=== PATIENT | male | born 1935 | race Caucasian/White ===

== ENCOUNTER 2019-04-30 15:35 | Day surgery (SDC) | payer MEDICARE, BC ==
[~2019-04-30 15:35] MED LIST: ALLO100T PO; AMIO200T40 PO; ASPI-1265 PO; ATOR40TA72 PO; CALC-891 PO; CARV3.1244 PO; DABI150C PO; DOCU100C41 PO; FOLI1TAB16 PO; HYDR-4353 PO; LUTE40CA PO; METH2.5T PO; MULT-933 PO; NITR0.4T51 SL
== END 2019-04-30 16:20 | disposition home or self-care (01) ==
LOC: SSTAY O 15:35
PROVIDERS: ATTEND Radiology Vascular & Interventional Radiology
DX: J90 Pleural effusion, not elsewhere classified (principal); Z53.8 Procedure and treatment not carried out for other reasons; Z95.1 Presence of aortocoronary bypass graft
CPT/HCPCS: 71046

== ENCOUNTER 2019-05-02 06:10 | Day surgery (SDC) | payer MEDICARE, BC ==
[~2019-05-02] VITALS: Ht 180.3 cm; Wt 83.4 kg
[~2019-05-02 06:10] MED LIST changes: -NITR0.4T51 SL
[2019-05-02 07:04] VITALS: BP 105/71
[2019-05-02 07:14] VITALS: BP 105/71
[2019-05-02 08:38] VITALS: BP 105/71
[2019-05-02 08:52] VITALS: BP 117/69
[2019-05-02 09:09] VITALS: BP 106/65
[2019-05-02 10:17] VITALS: BP 116/72
== END 2019-05-02 09:35 | disposition home or self-care (01) ==
LOC: SSTAY O 06:10
PROVIDERS: ATTEND Radiology Diagnostic Radiology
DX: J90 Pleural effusion, not elsewhere classified (principal); I25.10 Atherosclerotic heart disease of native coronary artery without angina pectoris; Z87.891 Personal history of nicotine dependence; Z95.5 Presence of coronary angioplasty implant and graft; Z79.899 Other long term (current) drug therapy; Z79.82 Long term (current) use of aspirin; Z98.890 Other specified postprocedural states; Z95.1 Presence of aortocoronary bypass graft
CPT/HCPCS: 32555; 71045; 87070; C1729

== ENCOUNTER 2019-10-09 10:25 | Outpatient (CLI) | payer MEDICARE, BC ==
[~2019-10-09 10:25] MED LIST changes: -AMIO200T40 PO; +AMIO200T61 PO
== END 2019-10-09 23:59 | disposition home or self-care (01) ==
LOC: 64 CT 10:25
PROVIDERS: ATTEND Thoracic Surgery (Cardiothoracic Vascular Surgery)
DX: J43.9 Emphysema, unspecified (principal); J90 Pleural effusion, not elsewhere classified; J98.4 Other disorders of lung; J98.11 Atelectasis; I51.7 Cardiomegaly; I25.10 Atherosclerotic heart disease of native coronary artery without angina pectoris; M40.294 Other kyphosis, thoracic region; Z95.0 Presence of cardiac pacemaker
CPT/HCPCS: 71250

== ENCOUNTER 2019-10-29 13:27 | Emergency (ER) | payer MEDICARE, BC ==
[~2019-10-29] VITALS: Ht 180.3 cm; Wt 76.5 kg
[2019-10-29] MEDS ORDERED: furosemide 10 MG/1 ML 10ml inj IV ONE (15:50)
--- NOTE | 2019-10-29 16:02 | NUR ---
laureen from [facility] returned mary call re; probable thoracentesis post valve repair. laureen stated we dont do unless pt admitted.
--- NOTE | 2019-10-29 16:05 | NUR ---
jose talking with now
[2019-10-29 16:25] LABS: BASOPHILS % (AUTO) 0.5 % (0-1); EOSINOPHILS # (AUTO) 0.2 X10'3 (0-0.9); HEMATOCRIT 39.7 % (42.0-52.0); HEMOGLOBIN 13.2 g/dl (14.0-17.9); LYMPHOCYTES % (AUTO) 11.9 % (21-51); MEAN CORPUSCULAR HEMOGLOBIN 31.2 PG (27.0-31.0); MEAN CORPUSCULAR HGB CONC 33.3 g/dL (33.0-36.5); MEAN CORPUSCULAR VOLUME 93.7 FL (78-98); MEAN PLATELET VOLUME 7.6 FL (7.4-10.4); MONOCYTES # (AUTO) 0.4 X10'3 (0-0.9); MONOCYTES % (AUTO) 5.3 % (2-12); NEUTROPHILS # (AUTO) 6.5 X10'3 (1.8-7.7); NEUTROPHILS % (AUTO) 80.3 % (42-75); PLATELET COUNT 278 X10'3 (140-440); RED BLOOD COUNT 4.24 X10'6 (4.70-6.10); RED CELL DISTRIBUTION WIDTH 16.8 % (11.5-14.5)
--- NOTE | 2019-10-29 16:25 | NUR ---
SPOKE WITH SELAM CANA[place] IR, ANGIO/IR WILL BE HERE SHORTLY DO DO THE THORACENTESIS NAHOMY LILLY IN ROOM SPEAKING WITH PATIENT AND FAMILY REGARDING PLUERADESIS. AT THIS TIME PATIENT IS REFUSING TO BE ADMITTED TO THE HOSPITAL
[2019-10-29 16:39] LABS: ALANINE AMINOTRANSFERASE 26 U/L (12-78); ALBUMIN 3.7 G/DL (3.4-5.0); ALBUMIN/GLOBULIN RATIO 0.6 (1.1-1.5); ALKALINE PHOSPHATASE 138 IU/L (46-116); ANION GAP 7 (8-16); ASPARTATE AMINO TRANSFERASE 27 U/L (10-37); BILIRUBIN,TOTAL 0.6 MG/DL (0.1-1.0); BLOOD UREA NITROGEN 23 MG/DL (7-18); BUN/CREATININE RATIO 20.2 (5.4-32.0); CALCIUM 9.9 MG/DL (8.5-10.1); CHLORIDE 103 MMOL/L (99-107); CREATININE 1.14 MG/DL (0.60-1.10); GLUCOSE 107 MG/DL (70-104); POTASSIUM 4.2 MMOL/L (3.5-5.1); SODIUM 141 MMOL/L (135-145); TOTAL CARBON DIOXIDE 31.1 MMOL/L (24-32); TOTAL PROTEIN 9.4 G/DL (6.4-8.2); eGFR 61 ML/MIN
--- NOTE | 2019-10-29 16:39 | NUR ---
ANGIO RN AND TECH IN ROOM
--- NOTE | 2019-10-29 16:39 | NUR ---
LAST PRADAXA PRIOR TO [place]
--- NOTE | 2019-10-29 16:40 | NUR ---
LASIX HELD FOR THORACENTESIS
[2019-10-29 16:42] VITALS: BP 111/80
[2019-10-29 16:45] VITALS: BP 107/76
[2019-10-29] MEDS ORDERED: morphine 4 MG/ML inj SYRINge IV ONE (17:05)
[2019-10-29] MEDS ORDERED: ondansetron/PF 4mg/2ml inj IV ONE (17:05)
--- NOTE | 2019-10-29 17:21 | NUR ---
ANGIO FINISHED WITH PROCEDURE. 850ML OUT. PT FEELS LESS SHORT OF BREATH.
[2019-10-29 18:07] VITALS: BP 116/79
== END 2019-10-29 18:08 | disposition home or self-care (01) ==
LOC: ER 13:27
DX: J90 Pleural effusion, not elsewhere classified (principal); E78.00 Pure hypercholesterolemia, unspecified; K21.9 Gastro-esophageal reflux disease without esophagitis; I25.2 Old myocardial infarction; M10.9 Gout, unspecified; F10.99 Alcohol use, unspecified with unspecified alcohol-induced disorder; Z98.890 Other specified postprocedural states; Z79.82 Long term (current) use of aspirin; Z79.899 Other long term (current) drug therapy; Y90.9 Presence of alcohol in blood, level not specified
CPT/HCPCS: 32555; 36415; 71045; 80053; 83880; 85025; 85610; 93005; 96374; 99285; J1940

== ENCOUNTER 2020-01-03 10:54 | Outpatient (CLI) | payer MEDICARE, BC ==
[~2020-01-03 10:54] MED LIST changes: -CARV3.1244 PO; -DABI150C PO; -DOCU100C41 PO; -HYDR-4353 PO; +LISI2.5T2 PO; +SPIR25TA PO
== END 2020-01-03 23:59 | disposition home or self-care (01) ==
LOC: RAD 10:54
PROVIDERS: ATTEND Thoracic Surgery (Cardiothoracic Vascular Surgery)
DX: J91.8 Pleural effusion in other conditions classified elsewhere (principal)
CPT/HCPCS: 71046

== ENCOUNTER 2020-02-05 11:20 | Emergency (ER) | payer MEDICARE, BC ==
[~2020-02-05] VITALS: Ht 180.3 cm; Wt 84.5 kg
[~2020-02-05 11:20] MED LIST changes: -ALLO100T PO; +ALLO300T2 PO; -AMIO200T61 PO; +APIX5TAB3 PO; +FURO-150 PO; +LEVO88TA7 PO; -METH2.5T PO
[2020-02-05] MEDS ORDERED: furosemide 40mg/4ml inj IV ONE (11:55)
[2020-02-05 11:56] LABS: BASOPHILS # (AUTO) 0.1 X10'3 (0-0.2); BASOPHILS % (AUTO) 1.4 % (0-1); EOSINOPHILS # (AUTO) 0.1 X10'3 (0-0.9); EOSINOPHILS % (AUTO) 1.2 % (0-6); HEMATOCRIT 40.3 % (42.0-52.0); HEMOGLOBIN 13.2 g/dl (14.0-17.9); LYMPHOCYTES # (AUTO) 0.7 X10'3 (1.1-4.8); LYMPHOCYTES % (AUTO) 9.2 % (21-51); MEAN CORPUSCULAR HEMOGLOBIN 32.2 PG (27.0-31.0); MEAN CORPUSCULAR HGB CONC 32.8 g/dL (33.0-36.5); MEAN CORPUSCULAR VOLUME 98.4 FL (78-98); MONOCYTES # (AUTO) 0.4 X10'3 (0-0.9); MONOCYTES % (AUTO) 6.2 % (2-12); NEUTROPHILS # (AUTO) 5.9 X10'3 (1.8-7.7); PLATELET COUNT 179 X10'3 (140-440); RED BLOOD COUNT 4.09 X10'6 (4.70-6.10); RED CELL DISTRIBUTION WIDTH 21.8 % (11.5-14.5); WHITE BLOOD COUNT 7.3 X10'3 (4.5-11.0)
[2020-02-05] MEDS ORDERED: FURO20TA4 PO (12:02)
[2020-02-05 12:03] LABS: ALANINE AMINOTRANSFERASE 57 U/L (12-78); ALBUMIN 3.1 G/DL (3.4-5.0); ALBUMIN/GLOBULIN RATIO 0.6 (1.1-1.5); ALKALINE PHOSPHATASE 205 IU/L (46-116); ANION GAP 8 (8-16); ASPARTATE AMINO TRANSFERASE 54 U/L (10-37); BLOOD UREA NITROGEN 30 MG/DL (7-18); BUN/CREATININE RATIO 21.6 (5.4-32.0); CALCIUM 9.2 MG/DL (8.5-10.1); CHLORIDE 103 MMOL/L (99-107); CREATININE 1.39 MG/DL (0.60-1.10); GLUCOSE 103 MG/DL (70-104); POTASSIUM 4.5 MMOL/L (3.5-5.1); SODIUM 138 MMOL/L (135-145); TOTAL CARBON DIOXIDE 27.4 MMOL/L (24-32); TOTAL PROTEIN 7.9 G/DL (6.4-8.2); eGFR 49 ML/MIN
[2020-02-05] MEDS ORDERED: SPIR25TA5 PO (12:03)
[2020-02-05] MEDS ORDERED: LISI2.5T89 PO (12:06)
[2020-02-05] MEDS ORDERED: APIX5TAB3 PO (12:06)
[2020-02-05] MEDS ORDERED: AMIO200T61 PO (12:06)
[2020-02-05 12:24] LABS: ANISOCYTOSIS 3+; PLATELET ESTIMATE NORMAL
[2020-02-05 12:26] LABS: POIKILOCYTOSIS 1+
[2020-02-05 12:27] LABS: ELLIPTOCYTES 1+
[2020-02-05 12:31] LABS: ACANTHOCYTES FEW
[2020-02-05 13:34] VITALS: BP 110/66
--- NOTE | 2020-02-05 13:34 | NUR ---
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
== END 2020-02-05 14:17 | disposition home or self-care (01) ==
LOC: ER 11:21
DX: I50.20 Unspecified systolic (congestive) heart failure (principal); E78.00 Pure hypercholesterolemia, unspecified; I25.2 Old myocardial infarction; K21.9 Gastro-esophageal reflux disease without esophagitis; M19.90 Unspecified osteoarthritis, unspecified site; Z86.711 Personal history of pulmonary embolism; Z86.718 Personal history of other venous thrombosis and embolism; Z95.1 Presence of aortocoronary bypass graft; Z98.890 Other specified postprocedural states; Z79.82 Long term (current) use of aspirin; Z79.01 Long term (current) use of anticoagulants; Z79.899 Other long term (current) drug therapy
CPT/HCPCS: 36415; 71045; 80053; 83880; 84484; 85025; 93005; 96374; 99285; J1940

== ENCOUNTER 2020-10-18 12:59 | Emergency (ER) | payer MEDICARE, BC ==
[~2020-10-18] VITALS: Ht 180.3 cm; Wt 90.0 kg
[~2020-10-18 12:59] MED LIST changes: +AMIO200T61 PO; +CARV3.122 PO; +FURO-149 PO; -FURO-150 PO; -LEVO88TA7 PO; -LISI2.5T2 PO; +LISI2.5T89 PO; -SPIR25TA PO; +SPIR25TA5 PO
[2020-10-18] MEDS ORDERED: aspirin 81mg tab.chew PO ONE (14:55)
[2020-10-18 15:52] LABS: BASOPHILS % (AUTO) 0.3 % (0-1); EOSINOPHILS % (AUTO) 0.5 % (0-6); HEMATOCRIT 32.8 % (42.0-52.0); HEMOGLOBIN 11.1 g/dl (14.0-17.9); LYMPHOCYTES # (AUTO) 0.5 X10'3 (1.1-4.8); LYMPHOCYTES % (AUTO) 5.7 % (21-51); MEAN CORPUSCULAR HEMOGLOBIN 32.2 PG (27.0-31.0); MEAN CORPUSCULAR HGB CONC 33.7 g/dL (33.0-36.5); MEAN CORPUSCULAR VOLUME 95.7 FL (78-98); MEAN PLATELET VOLUME 7.7 FL (7.4-10.4); MONOCYTES # (AUTO) 0.6 X10'3 (0-0.9); MONOCYTES % (AUTO) 7.2 % (2-12); NEUTROPHILS # (AUTO) 7.6 X10'3 (1.8-7.7); NEUTROPHILS % (AUTO) 86.3 % (42-75); PLATELET COUNT 239 X10'3 (140-440); RED BLOOD COUNT 3.43 X10'6 (4.70-6.10); RED CELL DISTRIBUTION WIDTH 17.5 % (11.5-14.5); WHITE BLOOD COUNT 8.7 X10'3 (4.5-11.0)
[2020-10-18 16:10] LABS: ALANINE AMINOTRANSFERASE 39 U/L (12-78); ALBUMIN/GLOBULIN RATIO 0.3 (1.1-1.5); ALKALINE PHOSPHATASE 217 IU/L (46-116); ANION GAP 5 (8-16); ASPARTATE AMINO TRANSFERASE 54 U/L (10-37); BILIRUBIN,TOTAL 1.1 MG/DL (0.1-1.0); BLOOD UREA NITROGEN 17 MG/DL (7-18); BUN/CREATININE RATIO 13.4 (5.4-32.0); CALCIUM 8.4 MG/DL (8.5-10.1); CHLORIDE 104 MMOL/L (99-107); CREATININE 1.27 MG/DL (0.60-1.10); GLUCOSE 90 MG/DL (70-104); POTASSIUM 3.1 MMOL/L (3.5-5.1); SODIUM 140 MMOL/L (135-145); TOTAL CARBON DIOXIDE 30.9 MMOL/L (24-32); TOTAL PROTEIN 8.3 G/DL (6.4-8.2); eGFR 54 ML/MIN
[2020-10-18] MEDS ORDERED: furosemide 10 MG/1 ML 10ml inj IV ONE (17:15)
[2020-10-18] MEDS ORDERED: potassium Cl 20 mEq SR tablet PO ONE (17:35)
[2020-10-18 17:51] VITALS: BP 107/61
== END 2020-10-18 18:16 | disposition home or self-care (01) ==
LOC: ER 13:00
DX: R60.0 Localized edema (principal); J90 Pleural effusion, not elsewhere classified; I50.9 Heart failure, unspecified; E78.00 Pure hypercholesterolemia, unspecified; K21.9 Gastro-esophageal reflux disease without esophagitis; I21.9 Acute myocardial infarction, unspecified; Z79.899 Other long term (current) drug therapy
CPT/HCPCS: 36415; 71045; 80053; 83880; 84484; 85025; 93005; 96374; 99285; J1940

== ENCOUNTER 2020-10-24 13:21 | Inpatient (IN) | payer MEDICARE, BC ==
[~2020-10-24] VITALS: Ht 170.2 cm; Wt 76.0 kg
[2020-10-24 13:37] LABS: ABG BASE EXCESS 3.7 mmol/L (-2.0-2.0); ABG HCO3 26.3 mmol/L (22.0-26.0); ABG OXYGEN SATURATION 99.5 % (94-97); ABG PCO2 (T) 33.2 mmHg (35.0-48.0); ALLEN'S TEST POSITIVE; FLOW 15 L/min; FMetHb 0.1 % (0.0-1.5); FO2Hb 98.4 % (94-97); TOTAL HEMOGLOBIN 12.8 G/dl (14.0-18.0)
[2020-10-24] MEDS ORDERED: normal saline 1000ML IV soln IVB ONE (13:40)
[2020-10-24] MEDS ORDERED: sodium bicarbonate (8.4%) 1 mEq/ml syringe IV ONE (13:55)
[2020-10-24] MEDS ORDERED: calcium chloride 100 MG/1 ML inj IV ONE (13:55)
[2020-10-24] MEDS ORDERED: amiodarone/D5 360MG/200ML BAG 200 ML IV ONE (13:55)
[2020-10-24] MEDS ORDERED: amiodarone 50MG/ML inj IV ONE (13:55)
[2020-10-24] MEDS ORDERED: dextrose 50%-water 50ml dispensing syringe IV ONE (13:55)
[2020-10-24 13:57] LABS: BASOPHILS % (AUTO) 0.1 % (0-1); EOSINOPHILS % (AUTO) 0.3 % (0-6); HEMATOCRIT 38.4 % (42.0-52.0); LYMPHOCYTES % (AUTO) 7.8 % (21-51); MEAN CORPUSCULAR HEMOGLOBIN 32.2 PG (27.0-31.0); MEAN CORPUSCULAR HGB CONC 33.8 g/dL (33.0-36.5); MEAN CORPUSCULAR VOLUME 95.5 FL (78-98); MEAN PLATELET VOLUME 7.5 FL (7.4-10.4); MONOCYTES # (AUTO) 0.7 X10'3 (0-0.9); MONOCYTES % (AUTO) 5.2 % (2-12); NEUTROPHILS # (AUTO) 10.8 X10'3 (1.8-7.7); NEUTROPHILS % (AUTO) 86.6 % (42-75); PLATELET COUNT 338 X10'3 (140-440); RED BLOOD COUNT 4.02 X10'6 (4.70-6.10); RED CELL DISTRIBUTION WIDTH 17.6 % (11.5-14.5); WHITE BLOOD COUNT 12.4 X10'3 (4.5-11.0)
[2020-10-24 14:04] LABS: PARTIAL THROMBOPLASTIN TIME 28 SECONDS (22-32)
[2020-10-24 14:13] LABS: ALANINE AMINOTRANSFERASE 48 U/L (12-78); ALBUMIN 2.2 G/DL (3.4-5.0); ALBUMIN/GLOBULIN RATIO 0.3 (1.1-1.5); ALKALINE PHOSPHATASE 251 IU/L (46-116); ANION GAP 8 (8-16); ASPARTATE AMINO TRANSFERASE 62 U/L (10-37); BILIRUBIN,TOTAL 1.6 MG/DL (0.1-1.0); BLOOD UREA NITROGEN 18 MG/DL (7-18); BUN/CREATININE RATIO 14.8 (5.4-32.0); CALCIUM 9.1 MG/DL (8.5-10.1); CHLORIDE 102 MMOL/L (99-107); CREATININE 1.22 MG/DL (0.60-1.10); GLUCOSE 119 MG/DL (70-104); MAGNESIUM 2.2 MG/DL (1.5-2.4); SODIUM 141 MMOL/L (135-145); TOTAL PROTEIN 9.4 G/DL (6.4-8.2); eGFR 56 ML/MIN
[2020-10-24 14:21] LABS: POTASSIUM 2.8 MMOL/L (3.5-5.1)
[2020-10-24] MEDS ORDERED: LIDOcaine 2% 10ml TOPICAL JELLY (Urojet) TP ONE (14:30)
[2020-10-24] MEDS: magnesium 2GM in 50ml NS 50 ML IV SCH ×2 (14:55→16:17)
--- NOTE | 2020-10-24 15:28 | NUR ---
CT SCAN COMPLETED.
[2020-10-24] MEDS: potassium Cl 10 mEq/100mL bag IV SCH ×2 (15:30→16:06)
--- NOTE | 2020-10-24 15:36 | NUR ---
COLLECTED COVID NASAL SWAB. SEND TO LAB.
[2020-10-24 15:40] LABS: C-REACTIVE PROTEIN 10.75 MG/DL (0.0-0.5); FERRITIN 724 NG/ML (26-388); LACTATE DEHYDROGENASE 218 U/L (85-227)
[2020-10-24] MEDS ORDERED: magnesium 4gm in 100ml NS 100 ML IV PRN (15:50)
[2020-10-24] MEDS ORDERED: acetaminophen 325mg tablet PO PRN ×2 (15:50)
[2020-10-24] MEDS ORDERED: magnesium Cl slow-release 64mg tablet PO PRN (15:50)
[2020-10-24] MEDS ORDERED: ondansetron/PF 4mg/2ml inj IV PRN (15:50)
[2020-10-24] MEDS ORDERED: morphine 2 MG/ML inj. syringe IV PRN ×2 (15:50)
[2020-10-24] MEDS ORDERED: HYDROcodone/acetaminophen 10/325mg tab PO PRN (15:50)
[2020-10-24] MEDS ORDERED: HYDROcodone/acetaminophen 5mg/325mg tablet PO PRN (15:50)
[2020-10-24] MEDS ORDERED: potassium Cl 20 mEq SR tablet PO PRN (15:50)
[2020-10-24] MEDS ORDERED: acetaminophen 650mg rectal suppository RC PRN (15:50)
[2020-10-24] MEDS ORDERED: potassium Cl 40MEQ/1/2NS 520ml 520 ML IV PRN ×2 (15:50)
[2020-10-24] MEDS ORDERED: magnesium 2GM in 50ml NS 50 ML IV PRN (15:50)
[2020-10-24] MEDS ORDERED: magnesium hydroxide 30ml (MOM) UD suspension PO PRN (15:50)
[2020-10-24] MEDS ORDERED: bisacodyl 10mg suppository rectal RC PRN (15:50)
[2020-10-24] MEDS ORDERED: mag hydrox/Alum hydrox/simeth 30ml oral suspension PO PRN (15:50)
[2020-10-24] MEDS: furosemide 10 MG/1 ML 10ml inj IV ONE ×2 (15:50→18:01)
[2020-10-24] MEDS ORDERED: diphenhydrAMINE 25mg capsule PO PRN (15:50)
[2020-10-24 16:22] LABS: HEMOGLOBIN A1C 6.4 % (4.5-6.2)
--- NOTE | 2020-10-24 16:41 | NUR ---
DR RYAN ADVISES TO CANCEL THE PREVIOUSLY ORDERED AMIODARONE, SODIUM BICARB, CALCIUM.
--- NOTE | 2020-10-24 18:11 | NUR ---
Patient in room ED 5. I have received report from Lois CANADA and had the opportunity to ask questions and assume patient care.
--- NOTE | 2020-10-24 18:19 | NUR ---
Peralta catheter inserted gauge 16
[2020-10-24] MEDS ORDERED: CARV6.253 PO (18:55)
[2020-10-24 19:00] VITALS: BP 95/62
--- NOTE | 2020-10-24 19:43 | NUR ---
Patient in room ED 5. I have received report from Champ CANADA in ER and had the opportunity to ask questions and assume patient care.
[2020-10-24 19:50] LABS: CLARITY,URINE CLEAR (Clear); COLOR,URINE YELLOW (Yellow); GLUCOSE, URINE NEGATIVE (Neg); KETONES,URINE NEGATIVE (Neg); LEUKOCYTE ESTERASE ,URINE NEGATIVE (Neg); NITRITES, URINE NEGATIVE (Neg); OCCULT BLOOD,URINE NEGATIVE (Neg); PROTEIN,URINE 30 mg/dl (Neg)
[2020-10-24 19:57] LABS: UA COLLECTION TYPE FOLEY CATH
[2020-10-24 19:58] LABS: BACTERIA,URINE FEW /HPF (Neg); RBC,URINE NONE SEEN /HPF (0-2); SQUAMOUS EPITHELIAL CELL,UR FEW /LPF (FEW); WBC,URINE 0-4 /HPF (0-4)
[2020-10-24] MEDS: K and/or MAG REPLACEMENT MC SCH (20:00)
[2020-10-24] MEDS: carvedilol 6.25mg tablet PO SCH (20:00)
[2020-10-24] MEDS: furosemide 10 MG/1 ML 10ml inj IV SCH (20:00)
[2020-10-24] MEDS ORDERED: apixaban 5mg tablet PO SCH (20:00)
--- NOTE | 2020-10-24 20:51 | NUR ---
patient uncable to swallow, sent message to MD regarding medication non administration upon admission to floor. Ricardo CANADA
--- NOTE | 2020-10-24 20:55 | NUR ---
PAGER ID: [phone] MESSAGE: AZIZA ROMERO-BRYAN ADMIT PCU-LE TO SWALLOW, SBP <100; HELD ABIXIPAN AND COREG. PT DNR-REPLACE PO WITH IV MEDS? SAVANA 1440
--- NOTE | 2020-10-24 20:58 | NUR ---
MD AGGARWAL RESPONDED BACK, NO NEW ORDERS, WILL CONTINUE TO MONITOR, INFORM DAY SHIFT RN/MD COLON RN
--- NOTE | 2020-10-24 21:34 | NUR ---
PAGER ID: [phone] MESSAGE: [phone] Jaren Tang-please call Ana Rosa [phone]- question regarding k level/furosemide order
[2020-10-24 22:00] VITALS: BP 100/59
[2020-10-25] MEDS ORDERED: heparin 10,000 units/1 ML INJ IV PRN (01:55)
[2020-10-25] MEDS ORDERED: heparin 25,000 UNIT/250ml bag 250 ML IV SCH (01:55)
[2020-10-25] MEDS ORDERED: heparin 10,000 units/1 ML INJ IV ONE (01:55)
[2020-10-25 02:00] VITALS: BP 99/65
[2020-10-25 03:28] LABS: PARTIAL THROMBOPLASTIN TIME 28 SECONDS (22-32)
[2020-10-25 06:00] VITALS: BP 101/61
[2020-10-25 06:24] LABS: BASOPHILS % (AUTO) 0.2 % (0-1); EOSINOPHILS % (AUTO) 0.1 % (0-6); HEMATOCRIT 30.9 % (42.0-52.0); HEMOGLOBIN 10.3 g/dl (14.0-17.9); LYMPHOCYTES # (AUTO) 0.5 X10'3 (1.1-4.8); LYMPHOCYTES % (AUTO) 4.6 % (21-51); MEAN CORPUSCULAR HEMOGLOBIN 31.8 PG (27.0-31.0); MEAN CORPUSCULAR HGB CONC 33.4 g/dL (33.0-36.5); MEAN CORPUSCULAR VOLUME 95.1 FL (78-98); MEAN PLATELET VOLUME 7.8 FL (7.4-10.4); MONOCYTES # (AUTO) 0.4 X10'3 (0-0.9); MONOCYTES % (AUTO) 3.9 % (2-12); NEUTROPHILS # (AUTO) 10.2 X10'3 (1.8-7.7); NEUTROPHILS % (AUTO) 91.2 % (42-75); PLATELET COUNT 261 X10'3 (140-440); RED BLOOD COUNT 3.25 X10'6 (4.70-6.10); RED CELL DISTRIBUTION WIDTH 17.6 % (11.5-14.5); WHITE BLOOD COUNT 11.2 X10'3 (4.5-11.0)
[2020-10-25 06:34] LABS: ALANINE AMINOTRANSFERASE 37 U/L (12-78); ALBUMIN 1.7 G/DL (3.4-5.0); ALBUMIN/GLOBULIN RATIO 0.3 (1.1-1.5); ALKALINE PHOSPHATASE 184 IU/L (46-116); ANION GAP 6 (8-16); ASPARTATE AMINO TRANSFERASE 48 U/L (10-37); BILIRUBIN,TOTAL 1.2 MG/DL (0.1-1.0); BLOOD UREA NITROGEN 19 MG/DL (7-18); BUN/CREATININE RATIO 17.3 (5.4-32.0); CALCIUM 8.5 MG/DL (8.5-10.1); CHLORIDE 107 MMOL/L (99-107); CHOL/HDL RATIO 3.1 (0.00-4.99); CHOLESTEROL 59 MG/DL (0-200); GLUCOSE 97 MG/DL (70-104); HDL CHOLESTEROL 19 MG/DL (35-60); LDL CHOLESTEROL 37 MG/DL (50-100); MAGNESIUM 2.2 MG/DL (1.5-2.4); SODIUM 142 MMOL/L (135-145); TOTAL CARBON DIOXIDE 29.1 MMOL/L (24-32); TOTAL PROTEIN 7.4 G/DL (6.4-8.2); TRIGLYCERIDES 37 MG/DL (20-135); eGFR 63 ML/MIN
--- NOTE | 2020-10-25 06:36 | NUR ---
Problems reprioritized. Patient report given, questions answered & plan of care reviewed with Dorene CANADA.
--- NOTE | 2020-10-25 06:37 | NUR ---
Patient in room PCU 3026. I have received report from tl lao and had the opportunity to ask questions and assume patient care.
[2020-10-25] MEDS ORDERED: spironolactone 25 MG tablet PO SCH (08:00)
[2020-10-25] MEDS: carvedilol 6.25mg tablet PO SCH (08:00)
[2020-10-25] MEDS: K and/or MAG REPLACEMENT MC SCH (08:00)
[2020-10-25] MEDS ORDERED: amiodarone 200mg tablet PO SCH (08:00)
[2020-10-25] MEDS ORDERED: lisinopril 2.5mg tablet PO SCH (08:00)
[2020-10-25] MEDS ORDERED: folic acid 1mg tablet PO SCH (08:00)
[2020-10-25] MEDS ORDERED: atorvastatin 20mg tablet PO SCH (08:00)
[2020-10-25] MEDS ORDERED: allopurinol 300 MG tablet PO SCH (08:00)
[2020-10-25] MEDS ORDERED: multivitamins, therapeutics tablet PO SCH (08:00)
[2020-10-25] MEDS ORDERED: aspirin 81mg tab.chew PO SCH (08:00)
[2020-10-25] MEDS ORDERED: calcium carbonate/vitamin D3 tablet PO SCH (08:00)
[2020-10-25] MEDS: potassium Cl 20 mEq SR tablet PO PRN ×2 (09:39→13:02)
[2020-10-25] MEDS: furosemide 10 MG/1 ML 10ml inj IV SCH (09:45)
[2020-10-25 11:00] VITALS: BP 95/59
[2020-10-25] MEDS ORDERED: POTA10TA36 PO (16:00)
[2020-10-25] MEDS ORDERED: FURO20TA4 PO (16:04)
[2020-10-25] MEDS ORDERED: SCOP1PAT11 TOP (16:36)
--- NOTE | 2020-10-25 17:00 | NUR ---
reviewed all discharge instructions with pt and pt's daughter raul by phone.raul aware of meds to be picked up at [facility] will contact [facility]. SL dc'd from [facility] and left neck,both sites clear. f/c dc'd earlier @ 1400, pt voidings w/o difficulty dc 'd via w/c with all belongings
--- NOTE | 2020-10-27 11:22 | NUR ---
CASE MANAGEMENT DISCHARGE FOLLOW UP: Pt to be seen today by [facility] for home hospice care.
== END 2020-10-25 17:40 | disposition hospice, inpatient (51) | DRG 280 ==
LOC: ER 13:22 → ED HOLD 15:47 → PCU 3S 19:55
PROVIDERS: ADMIT Family Medicine; ATTEND Family Medicine
DX: I21.4 Non-ST elevation (NSTEMI) myocardial infarction (principal); I46.9 Cardiac arrest, cause unspecified; I50.23 Acute on chronic systolic (congestive) heart failure; N17.9 Acute kidney failure, unspecified; E87.3 Alkalosis; R64 Cachexia; Z66 Do not resuscitate; D72.829 Elevated white blood cell count, unspecified; E78.00 Pure hypercholesterolemia, unspecified; E78.5 Hyperlipidemia, unspecified; I11.0 Hypertensive heart disease with heart failure; E87.6 Hypokalemia; I25.10 Atherosclerotic heart disease of native coronary artery without angina pectoris; I25.5 Ischemic cardiomyopathy; I48.91 Unspecified atrial fibrillation; F41.9 Anxiety disorder, unspecified; Z20.828 Contact with and (suspected) exposure to other viral communicable diseases; R09.02 Hypoxemia; K21.9 Gastro-esophageal reflux disease without esophagitis; M10.9 Gout, unspecified; M19.90 Unspecified osteoarthritis, unspecified site; R06.03 Acute respiratory distress; R54 Age-related physical debility; R55 Syncope and collapse; R74.01 Elevation of levels of liver transaminase levels; Z79.01 Long term (current) use of anticoagulants; Z86.711 Personal history of pulmonary embolism; Z86.718 Personal history of other venous thrombosis and embolism; I25.2 Old myocardial infarction; Z95.0 Presence of cardiac pacemaker; Z95.1 Presence of aortocoronary bypass graft; Z95.2 Presence of prosthetic heart valve; Z68.26 Body mass index [BMI] 26.0-26.9, adult
CPT/HCPCS: 36415; 36600; 70450; 71045; 80053; 80061; 81001; 82728; 82803; 83036; 83615; 83735; 83880; 84100; 84132; 84145; 84484; 85018; 85025; 85384; 85610; 85730; 86140; 87081; 87635; 93005; 93306; 93308; 96365; 99291; G0378; J1644; J1940; J3475; J3480; J7030